=== PATIENT | male | born 1950 | race Caucasian/White ===

== ENCOUNTER → 2017-12-24 14:27 | Outpatient (CLI) | payer MEDICARE | END | disposition home or self-care (01) | LOC: D.CT 14:27 | DX: R31.9 Hematuria, unspecified (principal) ==

== ENCOUNTER → 2019-01-10 08:37 | Outpatient (CLI) | payer MEDICARE | END | disposition home or self-care (01) | LOC: D.MRI 08:37 → D.CT 08:37 | DX: M54.5 Low back pain (principal) ==

== ENCOUNTER → 2019-03-17 10:21 | Outpatient (CLI) | payer MEDICARE | END | disposition home or self-care (01) | LOC: D.MRI 10:21 | PROVIDERS: ATTEND Family Medicine | DX: R22.2 Localized swelling, mass and lump, trunk (principal) ==